=== PATIENT | female | born 1985 | race Caucasian/White ===

== ENCOUNTER 2019-05-15 15:21 | Inpatient (IN) | payer BC, MEDICAID, OTHER ==
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
[2019-05-15 17:04] LABS: Amphetamine Screen,Urine Not Detected (NotDetected); Barbiturate Screen,Urine Not Detected (NotDetected); Benzodiazepines Screen,Urine Not Detected (NotDetected); Cocaine Screen,Urine Not Detected (NotDetected); Methadone Screen, Urine Not Detected (NotDetected); Opiate Screen,Urine Not Detected (NotDetected); Oxycodone Screen, Urine Not Detected (NotDetected); Phencyclidine Screen,Urine Not Detected (NotDetected); Tricyclic Antidepressant,Urine Not Detected (NotDetected); Urn Cannabinoid Scrn Detected (NotDetected)
[2019-05-15] MEDS ORDERED: LORazepam 1 MG TAB PO STA (18:37)
[2019-05-15] MEDS ORDERED: MAG HYDROX/AL HYDROX/SIMETH 30 ML CUP PO PRN (19:11)
[2019-05-15] MEDS ORDERED: MAGNESIUM HYDROXIDE 2,400 MG/10 ML CUP PO PRN (19:11)
[2019-05-15] MEDS ORDERED: LORazepam 1 MG TAB PO PRN (19:11)
[2019-05-15] MEDS ORDERED: ZIPRASIDONE 20 MG VIAL IM PRN (19:11)
[2019-05-15] MEDS: NICOTINE 14MG/24HR PATCH TRANSDERM SCH (19:57)
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
[2019-05-15 22:29] LABS: Appearance,Urine Cloudy (Clear); Bacteria,Urine Rare /hpf; Bilirubin,Urine Negative (Negative); Blood,Urine Negative (Negative); Color,Urine Yellow; Glucose,Urine (UA) Negative (Negative); Ketones,Urine 1+ (Negative); Leukocyte Esterase,Urine Small (Negative); Mucus,Urine Few /hpf; Nitrite,Urine Negative (Negative); Protein,Urine Negative (Negative); RBC,Urine 1 /hpf (0-5); Specific Gravity,Urine 1.022 (1.001-1.035); Squamous Epithelial Cell,Urine 12 /hpf (0-4); Urobilinogen,Urine <2.0 mg/dL (<2.0); WBC,Urine 1 /hpf (0-5)
[2019-05-16 07:49] LABS: Basophils % (A) 1 %; Eosinophils # (A) 0.1 k/uL (0-0.7); Eosinophils % (A) 2 %; HCT 37.4 % (34.0-46.0); HGB 12.9 gm/dL (11.4-16.0); Lymphocytes % (A) 38 %; MCH 31.2 pg (25.0-35.0); MCHC 34.5 g/dL (31.0-37.0); MCV 90.6 fL (80.0-100.0); Mean Platelet Volume 6.6; Monocytes # (A) 0.4 k/uL (0-1.0); Monocytes % (A) 5 %; Neutrophils # (A) 4.2 k/uL (1.3-7.7); Neutrophils % (A) 53 %; Platelet Count 287 k/uL (150-450); RBC 4.13 m/uL (3.80-5.40); WBC 7.9 k/uL (3.8-10.6)
[2019-05-16 08:06] LABS: ALT 15 U/L (9-52); AST 18 U/L (14-36); African American GFR (CKD) >90 (>60 ml/min/1.73 sqM); Albumin 4.1 g/dL (3.5-5.0); Alkaline Phosphatase 46 U/L (38-126); Anion Gap 9 mmol/L; Bilirubin, Delta 0.1 mg/dL (0.0-0.2); Bilirubin,Unconjugated 0.6 mg/dL (0.0-1.1); Blood Urea Nitrogen 10 mg/dL (7-17); Calcium 9.1 mg/dL (8.4-10.2); Carbon Dioxide 25 mmol/L (22-30); Chloride 106 mmol/L (98-107); Cholesterol 162 mg/dL (<200); Glucose 84 mg/dL (74-99); HDL Cholesterol 54 mg/dL (40-60); LDL Cholesterol,Calculated 92 mg/dL (0-99); Potassium 4.1 mmol/L (3.5-5.1); Sodium 140 mmol/L (137-145); Total Bilirubin 0.7 mg/dL (0.2-1.3); Total Protein 6.9 g/dL (6.3-8.2); Triglycerides 81 mg/dL (<150)
[2019-05-16] MEDS: NICOTINE 14MG/24HR PATCH TRANSDERM SCH ×2 (09:22→21:24)
[2019-05-16] MEDS ORDERED: hydrOXYzine PAMOATE 25 MG CAP PO PRN (11:40)
[2019-05-16] MEDS ORDERED: cefTRIAXone 1,000 MG VIAL (IM USE) IM STA (11:43)
[2019-05-16] MEDS: ESCITALOPRAM 5 MG TAB PO SCH (12:06)
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
[2019-05-16 16:42] LABS: Hemoglobin A1C 4.5 % (4.0-6.0)
[2019-05-16] MEDS ORDERED: traZODone HCL 50 MG TAB PO SCH (21:00)
[2019-05-17] MEDS: ESCITALOPRAM 5 MG TAB PO SCH (08:39)
[2019-05-17] MEDS: NICOTINE 14MG/24HR PATCH TRANSDERM SCH (08:39)
[2019-05-17] MEDS ORDERED: hydrOXYzine PAMOATE 25 MG CAP PO PRN (10:23)
--- NOTE | 2019-05-17 11:35 | P.PN ---
Progress Note - Text Progress Note Date: 05/17/19 Interval History: Patient was seen lying in her bed this morning was agreeable to speak with lauren jorgensen in the office. Patient states that she is continuing to feel frustrated as she is on the inpatient unit and claims that she misses her son and also was supposed to be moving into a new apartment this weekend however is stuck on the unit. Patient continues to feel overwhelmed with her stressors at home from her mother and her brother and patient spoke about wanting to get out of their life. Patient states that her anxiety and mood have mildly improved on the medications and she was able to get fair sleep last night on the trazodone however asked for an increase to the full dose of 50 mg. Patient states that she has not gone to groups yet however was encouraged to attend to help her with coping skills and distress tolerance and interact with other patients on the unit. At this time patient denies any suicidal or homical ideations, intent or plan. Patient denies any auditory, visual hallucinations and denies any paranoia or delusions. Patient denies any side effects from the medications and has been compliant with meds. Mental Status Exam: General Appearance: Patient appears to be stated age is alert, directable and cooperative. Patient does appear to be an mild distress Behavior: Patient is seated without any agitated behavior. Speech: Patient's speech is fluent and nonpressured. Mood/Affect: Patient reports their mood is mildly improving, affect is congruent Suicidality/Homicidality: Patient denies having any suicidal or homicidal ideation intent or plan. Perceptions: Patient denies any auditory or visual hallucinations. Though content/process: There is no evidence of any delusional thought content and thought process is linear and goal-directed. Preoccupied with arguments with her brother and mother. Memory and concentration: AOX3, grossly intact for the purposes of this session. Judgment and insight: Poor, improving mildly Assessment Depressive disorder unspecified Cannabis use disorder Nicotine dependence Plan: -Patient continues to meet criteria for inpatient psychiatric admission for symptom stabilization and safety. Patient has signed an adult voluntary form along with medication consent which is in patient's chart. -Medications: Will increase Lexapro to 10 mg daily for mood and anxiety tomorrow. We'll also increase trazodone to 50 mg daily at bedtime for insomnia and mood. Decreased hydroxyzine to 25 mg twice a day when necessary for anxiety. Patient received 1 dose of Rocephin IM yesterday for UTI symptoms. We'll continue to monitor and do a repeat UA in the near future. -Geodon and Ativan PRN for agitation/aggression -NRT - nicotine patch -SW on board for discharge planning. []
[2019-05-17] MEDS: traZODone HCL 50 MG TAB PO SCH (20:24)
[2019-05-18] MEDS: NICOTINE 14MG/24HR PATCH TRANSDERM SCH (08:49)
[2019-05-18] MEDS: ESCITALOPRAM 10 MG TAB PO SCH (08:49)
--- NOTE | 2019-05-18 14:56 | P.PN ---
Progress Note - Text Progress Note Date: 05/18/19 Interval history: Patient is seen in cross coverage today. She reports that her mood is doing better. She relates that yesterday she has side effects with the Vistaril and she doesn't want to take that again. She did take the trazodone last night but she feels like she missed the window in terms of sleeping better so she will try it again tonight. Mental status exam: She is alert and cooperative with the interview. Her speech is fluent, not rapid or pressured. Her thought processes are organized. Her mood is improved. She denies any thoughts of harm to self others. No evidence of active psychosis. She does not present with any agitation. Plan: We'll discontinue Vistaril when necessary as patient reports she had unwanted side effects with it. We'll continue other current psychotropic medication regimen at this time. Continue to monitor her mood and monitor her sleep and her ongoing response to treatment.
[2019-05-18] MEDS: ACETAMINOPHEN TAB 325 MG TAB PO PRN (18:44)
[2019-05-18 18:47] LABS: Glucose,Whole Blood 125 mg/dL (75-99)
[2019-05-18] MEDS: traZODone HCL 50 MG TAB PO SCH (22:18)
[2019-05-19] MEDS: ESCITALOPRAM 10 MG TAB PO SCH (09:03)
[2019-05-19] MEDS: NICOTINE 14MG/24HR PATCH TRANSDERM SCH (09:03)
--- NOTE | 2019-05-19 14:15 | P.PN ---
Progress Note - Text Progress Note Date: 05/19/19 Interval history: Patient seen in [facility] again today. She says that she slept well but she has been up since 5 in the morning. Makes reference to a peer coming in her room several times during the night. She does not voice any adverse psychotropic medication side effects. Her mood is improved. She does state that she took some medicine for constipation which she did give her benefit. She does seem to be eating enough. Mental status exam: She is alert and cooperative with the interview. Her speech is fluent, not rapid or pressured. Thought processes organized. Her mood is improved. She does not voice any thoughts of harm to self or others. There is no evidence of psychosis or agitation. Plan: Patient will be maintained on current psychotropic medication regimen. Continue to monitor for any medication side effects and monitor her ongoing response to treatment.
[2019-05-19] MEDS: ACETAMINOPHEN TAB 325 MG TAB PO PRN (17:35)
[2019-05-19] MEDS: traZODone HCL 50 MG TAB PO SCH (22:01)
[2019-05-20] MEDS: NICOTINE 14MG/24HR PATCH TRANSDERM SCH (08:34)
[2019-05-20] MEDS: ESCITALOPRAM 10 MG TAB PO SCH (08:34)
--- NOTE | 2019-05-20 11:47 | P.PN ---
Progress Note - Text Progress Note Date: 05/20/19 Interval History: Patient was seen in the hallways and was agreeable to speak with speech writer in the office. Patient states that she is feeling much better and had a better weekend. She states that her mood is gradually improving and her anxiety as well. Patient asked several questions about using marijuana when she left the inpatient unit and went home however speech writer spoke about the potential consequences/risks of using marijuana and the interactions and may have with her medications and affect on her mental health, patient verbally understood and agreed. Patient continues to feel that she should not be in the hospital however is directable and cooperative with treatment and states that she misses her son and wants to get home to him soon. Patient stated that she had a good sleep last night on the trazodone. Patient does claim that she did start her period cycle and was feeling a little bit irritable with some abdominal pain. Patient states that she is going to groups and is encouraged to attend to help her with coping skills and distress tolerance and interact with other patients on the unit. At this time patient denies any suicidal or homical ideations, intent or plan. Patient denies any auditory, visual hallucinations and denies any paranoia or delusions. Patient denies any side effects from the medications and has been compliant with meds. Mental Status Exam: General Appearance: Patient appears to be stated age is alert, directable and cooperative. Behavior: Patient is seated without any agitated behavior. Speech: Patient's speech is fluent and nonpressured. Mood/Affect: Patient reports their mood is mildly improving, affect is congruent Suicidality/Homicidality: Patient denies having any suicidal or homicidal ideation intent or plan. Perceptions: Patient denies any auditory or visual hallucinations. Though content/process: There is no evidence of any delusional thought content and thought process is linear and goal-directed. Memory and concentration: AOX3, grossly intact for the purposes of this session. Judgment and insight: Fair, improving mildly Assessment Depressive disorder unspecified Cannabis use disorder Nicotine dependence Plan: -Patient continues to meet criteria for inpatient psychiatric admission for symptom stabilization and safety. Patient has signed an adult voluntary form along with medication consent which is in patient's chart. -Medications: Will increase Lexapro to 15 mg daily for mood and anxiety tomorrow. We'll continue with trazodone to 50 mg daily at bedtime for insomnia and mood. -Patient received 1 dose of Rocephin IM yesterday for UTI symptoms. Will repeat UA today. -Geodon and Ativan PRN for agitation/aggression -NRT - nicotine patch -SW on board for discharge planning. We'll patient likely to be discharged home in 1-2 days.
[2019-05-20] MEDS: IBUPROFEN 600 MG TAB PO PRN (13:10)
[2019-05-20 21:08] LABS: Appearance,Urine Cloudy (Clear); Bacteria,Urine Few /hpf; Bilirubin,Urine Negative (Negative); Blood,Urine Large (Negative); Budding Yeast,Urine Rare /hpf; Color,Urine Yellow; Glucose,Urine (UA) Negative (Negative); Ketones,Urine Negative (Negative); Leukocyte Esterase,Urine Small (Negative); Mucus,Urine Rare /hpf; Nitrite,Urine Negative (Negative); PH, Urine 5.5 (5.0-8.0); Protein,Urine Negative (Negative); RBC,Urine 3 /hpf (0-5); Specific Gravity,Urine 1.017 (1.001-1.035); Squamous Epithelial Cell,Urine 15 /hpf (0-4); Urobilinogen,Urine <2.0 mg/dL (<2.0)
[2019-05-20] MEDS: traZODone HCL 50 MG TAB PO SCH (23:11)
[2019-05-21] MEDS ORDERED: LORazepam 1 MG TAB PO STA (01:20)
[2019-05-21] MEDS: ESCITALOPRAM 5 MG TAB PO SCH (08:54)
[2019-05-21] MEDS: NICOTINE 14MG/24HR PATCH TRANSDERM SCH (08:59)
--- NOTE | 2019-05-21 11:30 | P.PN ---
Progress Note - Text Progress Note Date: 05/21/19 Interval History: Patient was seen in the hallways and was agreeable to speak with fiction writer in the office. Patient states that she is feeling much better and claims that "I finally feel happy again" and states that she is remaining positive and trying to work on her issues when she gets discharged. She spoke about needing to go to the court house to figure out her custody agreement and to see if they would be able to reverse her temporary custody suspension on her kids. She also claims that she is looking forward to being discharged tomorrow and states that she will be going to stay at one of her friend's house until Monday when her apartment will be ready for her to move into. Patient stated that she had ok sleep last night on the trazodone however is claiming that she did not fall asleep until 12:00 last night and is requesting an increase in the dose to 75 mg. Patient states that she is going to groups and is encouraged to attend to help her with coping skills and distress tolerance and interact with other patients on the unit. At this time patient denies any suicidal or homical ideations, intent or plan. Patient denies any auditory, visual hallucinations and denies any paranoia or delusions. Patient denies any side effects from the medications and has been compliant with meds. Mental Status Exam: General Appearance: Patient appears to be stated age is alert, directable and cooperative. Behavior: Patient is seated without any agitated behavior. Speech: Patient's speech is fluent and nonpressured. Mood/Affect: Patient reports their mood is improving, affect is congruent Suicidality/Homicidality: Patient denies having any suicidal or homicidal ideation intent or plan. Perceptions: Patient denies any auditory or visual hallucinations. Though content/process: There is no evidence of any delusional thought content and thought process is linear and goal-directed. Memory and concentration: AOX3, grossly intact for the purposes of this session. Judgment and insight: Fair, improving mildly Assessment Depressive disorder unspecified Cannabis use disorder Nicotine dependence Plan: -Patient continues to meet criteria for inpatient psychiatric admission for symptom stabilization and safety. Patient has signed an adult voluntary form along with medication consent which is in patient's chart. -Medications: Will continue with Lexapro to 15 mg daily for mood and anxiety. We'll increase trazodone to 75mg daily at bedtime for insomnia and mood. -Repeated UA showed that patient has blood in the urine along with a small amount of leukocyte esterase. When asked about patient's urinary symptoms patient claims that she has always had increase in frequency of her urine since she has had the IUD placed and also claims that the blood may have been from her menstrual cycle. Patient is denying any dysuria or urgency or any pus in her urine. -Geodon and Ativan PRN for agitation/aggression -NRT - nicotine patch -SW on board for discharge planning. We'll patient likely to be discharged tomorrow to friend's house. Patient will be required to have a family meeting with her friend that she is being discharged to her house prior to her leaving the hospital.
[2019-05-21] MEDS: IBUPROFEN 600 MG TAB PO PRN (12:22)
[2019-05-21] MEDS: traZODone HCL 50 MG TAB PO SCH ×2 (21:43→22:04)
[2019-05-21] MEDS ORDERED: traZODone HCL 50 MG TAB PO SCH (22:00)
[2019-05-22 06:54] VITALS: BP 119/54; PULSE 62; RESP 16; TEMP 97.9
[2019-05-22] MEDS: ESCITALOPRAM 5 MG TAB PO SCH (08:23)
[2019-05-22] MEDS: NICOTINE 14MG/24HR PATCH TRANSDERM SCH (08:23)
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
[2019-05-22] MEDS ORDERED: traZODone HCL 50 MG TAB PO SCH (21:00)
== END 2019-05-22 13:00 | disposition home or self-care (01) | DRG 885 ==
LOC: SUPCPDRO 15:21 → EC 15:21 → 3MHU 18:38
PROVIDERS: ADMIT Psychiatry & Neurology Psychiatry; ATTEND Psychiatry & Neurology Psychiatry
DX: F33.1 Major depressive disorder, recurrent, moderate (principal); F23 Brief psychotic disorder; R45.851 Suicidal ideations; E78.5 Hyperlipidemia, unspecified; F12.10 Cannabis abuse, uncomplicated; F17.210 Nicotine dependence, cigarettes, uncomplicated; F41.0 Panic disorder [episodic paroxysmal anxiety]; G47.00 Insomnia, unspecified; K59.00 Constipation, unspecified; R35.0 Frequency of micturition; Z88.0 Allergy status to penicillin; Z88.8 Allergy status to other drugs, medicaments and biological substances
CPT/HCPCS: 80053; 80061; 80306; 81001; 81025; 82075; 82248; 83036; 84443; 85025; 87086; 99285

== ENCOUNTER 2020-08-22 19:30 | Inpatient (IN) | payer MEDICAID, OTHER ==
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
[2020-08-22] MEDS ORDERED: HALOPERIDOL LACTATE 5 MG/ML 1 ML VIAL IM STA (21:47)
[2020-08-22] MEDS ORDERED: ACETAMINOPHEN TAB 325 MG TAB PO PRN (23:13)
[2020-08-22] MEDS ORDERED: LORazepam 1 MG TAB PO PRN (23:13)
[2020-08-22] MEDS ORDERED: HALOPERIDOL LACTATE 5 MG/ML 1 ML VIAL IM PRN (23:16)
[2020-08-22] MEDS ORDERED: LORazepam 2 MG/ML INJ IM PRN (23:17)
[2020-08-23] MEDS ORDERED: MAG HYDROX/AL HYDROX/SIMETH 30 ML CUP PO PRN
[2020-08-23] MEDS ORDERED: MAGNESIUM HYDROXIDE 2,400 MG/10 ML CUP PO PRN
[2020-08-23 07:51] LABS: Basophils % (A) 0 %; Eosinophils # (A) 0.1 k/uL (0-0.7); Eosinophils % (A) 2 %; HCT 35.7 % (34.0-46.0); HGB 12.3 gm/dL (11.4-16.0); Lymphocytes # (A) 2.2 k/uL (1.0-4.8); Lymphocytes % (A) 32 %; MCH 30.6 pg (25.0-35.0); MCHC 34.4 g/dL (31.0-37.0); MCV 89.1 fL (80.0-100.0); Mean Platelet Volume 6.6; Monocytes # (A) 0.3 k/uL (0-1.0); Monocytes % (A) 5 %; Neutrophils # (A) 4.2 k/uL (1.3-7.7); Neutrophils % (A) 60 %; Platelet Count 296 k/uL (150-450); RBC 4.01 m/uL (3.80-5.40); RDW 12.1 % (11.5-15.5); WBC 6.9 k/uL (3.8-10.6)
[2020-08-23 08:05] LABS: ALT 11 U/L (4-34); AST 26 U/L (14-36); African American GFR (CKD) >90 (>60 ml/min/1.73 sqM); Albumin 3.7 g/dL (3.5-5.0); Alkaline Phosphatase 48 U/L (38-126); Anion Gap 5 mmol/L; Blood Urea Nitrogen 10 mg/dL (7-17); Calcium 9.1 mg/dL (8.4-10.2); Carbon Dioxide 25 mmol/L (22-30); Chloride 108 mmol/L (98-107); Cholesterol 141 mg/dL (<200); Glucose 86 mg/dL (74-99); HDL Cholesterol 49 mg/dL (40-60); LDL Cholesterol,Calculated 82 mg/dL (0-99); Non-African American GFR(CKD) >90 (>60 ml/min/1.73 sqM); Potassium 4.1 mmol/L (3.5-5.1); Sodium 138 mmol/L (137-145); Total Bilirubin 0.6 mg/dL (0.2-1.3); Total Protein 6.4 g/dL (6.3-8.2); Triglycerides 49 mg/dL (<150)
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
--- NOTE | 2020-08-24 01:31 | P.MDCNMH ---
History of Present Illness H&P Date: 08/23/20 Chief Complaint: medical evaluation 35 year old female no significant past medical history patient was found in the [place] by police with delusional thoughts, she claims th at she has a stalker, and admits to using marijuanan and meth, denies alcohol use, she admits to smoking, she denies any suicidal ideation she denies any medical concerns at this time denies upper respiratory infection symptoms do not denies GI symptoms denies any urinary changes denies any bleedin g. Review of Systems Pertinent positives as noted in HPI. All other systems were reviewed and are negative Past Medical History Past Medical History: Hyperlipidemia Additional Past Medical History / Comment(s): hernia History of Any Multi-Drug Resistant Organisms: None Reported Past Surgical History: No Surgical Hx Reported Past Psychological History: Anxiety, Depression, Panic Disorder Smoking Status: Current every day smoker Past Alcohol Use History: None Reported Past Drug Use History: Marijuana Medications and Allergies Home Medications Medication Instructions Recorded Confirmed Type Acetaminophen Tab [Tylenol] 650 mg PO Q6HR PRN #25 tab 05/22/19 Rx Escitalopram [Lexapro] 15 mg PO DAILY #28 tab 05/22/19 Rx Nicotine 14Mg/24Hr Patch [Habitrol] 1 patch TRANSDERM DAILY #7 patch 05/22/19 Rx traZODone HCL [Desyrel] 50 mg PO HS #14 tab 05/22/19 Rx Allergies Allergy/AdvReac Type Severity Reaction Status Date / Time amoxicillin Allergy Rash/Hives Verified 08/22/20 19:37 prednisone AdvReac Hallucinati Verified 08/22/20 19:37 ons Physical Exam Vitals: Vital Signs Temp 08/23/20 18:28 99.0 F 08/23/20 13:09 97.4 F L Intake and Output 08/23/20 08/23/20 08/24/20 14:59 22:59 06:59 Other: Weight 52.1 kg Constitutional: No acute distress, conversant, cooperative Eyes: Anicteric sclerae, moist conjunctiva, Pupils equal round reactive to light ENMT: NC/AT Oropharynx clear, no erythema, no exudates Neck: Supple, FROM, no masses, or JVD No carotid bruits No thyromegaly Lungs: Clear to auscultation Clear to percussion Normal respiratory effort, no accessory muscle use Cardiovascular: Heart regular in rate and rhythm, No murmurs, gallops, or rubs No peripheral edema Abdominal: Soft Nontender, no guarding, rebound or rigidity Abdomen moving with respiration Normoactive bowel sounds No hepatomegaly, No splenomegaly No palpable mass No abdominal wall hernia noted Skin: Normal temperature, tone, texture, turgor No induration No subcutaneous nodules No rash, lesions No ulcers Extremities: No digital cyanosis No clubbing Pedal pulses intact and symmetrical Radial pulses intact and symmetrical No calf tenderness Psychiatric: Alert and oriented to person, place Flat affect Poor judgement Neuro Muscles Strength 5/5 in all 4 extremities Sensation to light touch grossly present throughout Cranial nerves II-XII grossly intact No focal sensory deficits Lymphatics: no palpable cervical or supraclavicular , or inguinal lymph nodes Cranial Nerve Examination - Cranial Nerves Cranial Nerve II- Optic: Intact Cranial Nerve III- Oculomotor: Intact Cranial Nerve IV- Trochlear: Intact Cranial Nerve V- Trigeminal: Intact Cranial Nerve - Abducens: Intact Cranial Nerve VII- Facial: Intact Cranial Nerve VIII- Auditory: Intact Cranial Nerve IX- Glossopharyngeal: Intact Cranial Nerve X- Vagus: Intact Cranial Nerve XI- Accessory: Intact Cranial Nerve XII- Hypoglossal: Intact Results CBC & Chem 7: 08/23/20 07:30 08/23/20 07:30 Labs: Abnormal Lab Results - Last 24 Hours (Table) 08/23/20 Range/Units 07:30 Chloride 108 H (98-107) mmol/L Assessment and Plan Assessment: Delusional ideation Management per psych Polysubstance abuse Counseled to quit drug of abuse Labs reviewed unremarkable Thank you for allowing us to participate in the care of this patient. We will follow peripherally. Do not hesitate to contact us with questions. Someone can be reached from the [facility] hospitalist group at all hours of the day at [phone].
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
[2020-08-25] MEDS ORDERED: OLANZapine 10 MG VIAL IM PRN (10:50)
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
[2020-08-25] MEDS: OLANZapine 5 MG TAB PO SCH (14:16)
[2020-08-26] MEDS: OLANZapine 5 MG TAB PO SCH (08:51)
--- NOTE | 2020-08-26 11:20 | P.PN ---
Progress Note - Text Progress Note Date: 08/26/20 Clinical Problems: Unspecified psychotic disorder, rule out methamphetamine induced psychotic disorder, rule out bipolar disorder manic with psychotic features, rule out schizoaffective disorder, cannabis use disorder, methamphetamine use disorder, tobacco use Interim history: I reviewed the medical record, interviewed the patient and discussed her treatment and treatment plan during team meeting. She again refused to get out of bed and would not take the covers of her head. She denied problems or concerns. She took the initial dose of olanzapine and denied side effects. She does not participate in therapeutic groups or activities. She is posed no management problem and had no episodes of behavioral dyscontrol. Mental status exam: She presented as a thin, irritable and uncooperative 35-year-old female. She did not make eye contact but appeared to attend to the interview. Her speech was abrupt and her answers to questions were terse. Her affect was angry. She did not express suicidal ideation or wishes. She was paranoid and expressed paranoid delusional thoughts. Her thinking was concrete and not fully organized and goal directed. She did not appear to be responding to internal stimuli. Assessment: She remains irritable, paranoid and uncooperative. Plan: Continue inpatient treatment. Safety precautions. Continue olanzapine 5 mg by mouth and titrated according to clinical response and tolerance. If she refuses the oral dose then proceed with involuntary hospitalization. Continue Haldol and or Ativan when necessary for agitation or aggression. Encourage participation in therapeutic groups and activities. Evaluate clinical status re sponse to treatment on a daily basis.
[2020-08-27] MEDS: OLANZapine 5 MG TAB PO SCH (08:14)
--- NOTE | 2020-08-27 11:19 | P.PN ---
Progress Note - Text Progress Note Date: 08/27/20 Clinical Problems: Unspecified psychotic disorder, rule out methamphetamine induced psychotic disorder, rule out bipolar disorder manic with psychotic features, rule out schizoaffective disorder, cannabis use disorder, methamphetamine use disorder, tobacco use Interim history: I reviewed the medical record, interviewed the patient and discussed her treatment and treatment plan during team meeting. She again refused to get out of bed she took the covers of her head and made eye contact. Her only concern was to complained that her room was called. I suggested that she asked nursing staff for extra blankets or even a change in her room. She did not talk about the paranoid delusional thoughts she expressed when she was admitted to the hospital She's been compliant with the current dose of olanzapine and denied side effects. She does not participate in therapeutic groups or activities. She is posed no management problem and had no episodes of behavioral dyscontrol. Mental status exam: She presented as a thin, irritable and uncooperative 35-year-old female. She did not make eye contact but appeared to attend to the interview. Her speech was abrupt and her answers to questions were terse. Her affect was angry. She did not express suicidal ideation or wishes. She was paranoid and expressed paranoid delusional thoughts. Her thinking was concrete and not fully organized and goal directed. She did not appear to be responding to internal stimuli. Assessment: She is less irritable and paranoid but remains withdrawn and uncooperative. Plan: Continue inpatient treatment. Safety precautions. Increase olanzapine to 10 mg at bedtime and titrated according to clinical response and tolerance. If she refuses the oral dose then proceed with involuntary hospitalization. Continue Haldol and or Ativan when necessary for agitation or aggression. Encou rage participation in therapeutic groups and activities. Evaluate clinical status response to treatment on a daily basis.
[2020-08-28] MEDS ORDERED: OLANZapine 5 MG TAB PO SCH (09:00)
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
[2020-08-29] MEDS: OLANZapine 7.5 MG TAB PO SCH (08:32)
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
[2020-08-30] MEDS: OLANZapine 7.5 MG TAB PO SCH (08:34)
[2020-08-30 09:12] VITALS: BMI 22.4
--- NOTE | 2020-08-30 15:35 | PN ---
PROGRESS NOTE DATE OF SERVICE: 08/30/2020. CHIEF COMPLAINT: The patient was brought to the ED by police. She said she had called police believing there were people watching her and threatening her. INTERVAL HISTORY: Patient has been doing fair. She had a quiet day yesterday. Mostly she is in her room. She did not attend groups. She will come out and wander a bit in the [place], so she does not interact much with others. She said that she slept well last night. In fact, slept in until late morning. She had no specific complaint or concern today when I talked to her. She reported no problems with her medication. She did not engage much in conversation. She was reluctant to go to groups though did not really clarify what the issues were. She did not identify any specific problems or concerns. She tolerates her psychotropic medications. MENTAL STATUS: Patient gave fair eye contact at best. Psychomotor activity was slowed. Speech was monotone. She answered questions with brief responses. She did not say much. Her affect was flat. Her mood reserved. She seemed somewhat distressed. It was difficult to assess for thought disorder. It was difficult to assess for thoughts of harm. ASSESSMENT: I will continue the current diagnosis and treatment plan. I will continue psychotropic medications the same. I encouraged the patient to connect with nursing if there were any problems or concerns. We will focus on stabilization and discharge planning. NILESH / ALVIN: [id number] /
[2020-08-31 07:08] VITALS: BP 96/58; PULSE 50; RESP 14
[2020-08-31] MEDS: OLANZapine 7.5 MG TAB PO SCH (08:21)
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
[2020-08-31 13:54] VITALS: TEMP 97.9
== END 2020-08-31 14:41 | disposition home or self-care (01) | DRG 897 ==
LOC: EC 19:30 → 3MHU 23:07
PROVIDERS: ADMIT Psychiatry & Neurology Psychiatry; ATTEND Psychiatry & Neurology Psychiatry
DX: F15.259 Other stimulant dependence with stimulant-induced psychotic disorder, unspecified (principal); E78.5 Hyperlipidemia, unspecified; F15.23 Other stimulant dependence with withdrawal; F60.9 Personality disorder, unspecified; F12.10 Cannabis abuse, uncomplicated; F32.9 Major depressive disorder, single episode, unspecified; F41.0 Panic disorder [episodic paroxysmal anxiety]; Z20.828 Contact with and (suspected) exposure to other viral communicable diseases; F17.200 Nicotine dependence, unspecified, uncomplicated; Z71.6 Tobacco abuse counseling; Z79.899 Other long term (current) drug therapy; Z88.0 Allergy status to penicillin; Z88.8 Allergy status to other drugs, medicaments and biological substances
CPT/HCPCS: 80053; 80061; 82075; 83036; 84443; 85025; 87635; 96372; 99285

== ENCOUNTER 2021-07-31 16:38 | Emergency (ER) | payer OTHER ==
[2021-07-31 17:13] VITALS: BP 129/91; PULSE 91; RESP 20; TEMP 98.4
[2021-07-31] MEDS ORDERED: MORPHINE SULFATE 4 MG/ML SYRINGE IM STA (18:22)
[2021-07-31] MEDS ORDERED: CLINDAMYCIN 150 MG CAP PO STA (18:29)
[2021-07-31] MEDS ORDERED: traMADol 50 MG STARTER PACK 3 TAB BTL PO STA (18:30)
--- NOTE | 2021-07-31 18:31 | ED ---
General Adult HPI - General Chief complaint: Dental/Oral Stated complaint: tooth pain Time Seen by Provider: 07/31/21 18:12 Source: patient, family, RN notes reviewed, old records reviewed Mode of arrival: ambulatory Limitations: no limitations - History of Present Illness Initial comments: 36-year-old female, alert and oriented 4, tearful and crying in pain states that she's had a fractured tooth for a couple of months and does have an appointment with the dentist on Monday. She states that she cannot tolerate the pain. Denies any fevers or other complaints. -: month(s) (2) Location: mouth (Dental pain tooth #18) Severity scale (1-10): 10 Quality: constant Consistency: constant Improves with: none Worsens with: none Associated Symptoms: denies other symptoms Treatments Prior to Arrival: NSAID - Related Data Previous Rx's Medication Instructions Recorded Acetaminophen Tab [Tylenol] 650 mg PO Q6HR PRN #25 tab 05/22/19 Nicotine 14Mg/24Hr Patch [Habitrol] 1 patch TRANSDERM DAILY #7 patch 05/22/19 OLANZapine [ZyPREXA] 15 mg PO DAILY #30 tablet 08/31/20 Clindamycin HCl 300 mg PO Q8H 7 Days #21 cap 07/31/21 Clindamycin [Cleocin] 150 mg PO Q8H 7 Days #21 capsule 07/31/21 Ibuprofen [Motrin] 600 mg PO Q8HR PRN #30 tab 07/31/21 Allergies Allergy/AdvReac Type Severity Reaction Status Date / Time amoxicillin Allergy Rash/Hives Verified 07/31/21 17:13 prednisone AdvReac Hallucinati Verified 07/31/21 17:13 ons Review of Systems ROS Statement: Those systems with pertinent positive or pertinent negative responses have been documented in the HPI. ROS Other: All systems not noted in ROS Statement are negative. Past Medical History Past Medical History: Hyperlipidemia Additional Past Medical History / Comment(s): hernia History of Any Multi-Drug Resistant Organisms: None Reported Past Surgical History: No Surgical Hx Reported Past Psychological History: Anxiety, Depression, Panic Disorder Smoking Status: Current every day smoker Past Alcohol Use History: None Reported Past Drug Use History: Marijuana General Exam Limitations: no limitations General appearance: alert, in distress (pain) Eye exam: Present: normal appearance, EOMI ENT exam: Present: normal oropharynx, mucous membranes moist, other (fractured tooth #18, no abscess noted, dental caries ) Neck exam: Present: normal inspection, full ROM. Absent: tenderness, meningismus, lymphadenopathy Respiratory exam: Present: normal lung sounds bilaterally. Absent: respiratory distress, wheezes, rales, rhonchi, stridor Cardiovascular Exam: Present: regular rate, normal rhythm GI/Abdominal exam: Present: soft Neurological exam: Present: alert, oriented X3 Psychiatric exam: Present: other (tearful) Skin exam: Present: warm, dry, intact, normal color. Absent: rash Course Vital Signs 07/31/21 17:11 Temperature 98.4 F Pulse Rate 91 Respiratory 20 Rate Blood Pressure 129/91 O2 Sat by Pulse 96 Oximetry Medical Decision Making - Medical Decision Making Patient presents to the emergency room complaining of dental pain for 2 months. States that it is significantly worse today. She is tearful and crying. She does have an appointment on Monday with her dentist. She denies any fevers. There is no evidence of abscess or swelling. There is no lymphadenopathy. Patient has multiple dental caries. She states that Motrin has not been helping her. She was given an injection of morphine for pain and antibiotic prescription. Case discussed with Dr. Novoa Disposition Clinical Impression: Dental abscess Disposition: HOME SELF-CARE Condition: Good Instructions (If sedation given, give patient instructions): Dental Abscess (ED), Toothache (ED) Additional Instructions: Take antibiotics and Motrin every 8 hours as prescribed and follow up with your dentist Monday as scheduled. Prescriptions: Clindamycin [Cleocin] 150 mg PO Q8H 7 Days #21 capsule Clindamycin HCl 300 mg PO Q8H 7 Days #21 cap Ibuprofen [Motrin] 600 mg PO Q8HR PRN #30 tab PRN Reason: Pain Is patient prescribed a controlled substance at d/c from ED?: No Referrals: None,Stated [Primary Care Provider] - 1-2 days Time of Disposition: 18:31
== END 2021-07-31 19:04 | disposition home or self-care (01) ==
LOC: EC 16:38
DX: K04.7 Periapical abscess without sinus (principal); E78.5 Hyperlipidemia, unspecified; F41.9 Anxiety disorder, unspecified; F32.A Depression, unspecified; F17.200 Nicotine dependence, unspecified, uncomplicated; F12.90 Cannabis use, unspecified, uncomplicated
CPT/HCPCS: 99282; 96372; J2270

== ENCOUNTER → 2024-07-02 | Outpatient (CLI) | payer OTHER ==
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
== END | disposition home or self-care (01) ==
LOC: RADUSWWP 08:30
PROVIDERS: ATTEND Family Medicine
CPT/HCPCS: 76700

== ENCOUNTER → 2024-08-20 | Outpatient (CLI) | payer OTHER ==
--- NOTE | 2024-08-20 23:04 | MR ---
EXAMINATION TYPE: MR abdomen wo/w con DATE OF EXAM: 08/20/2024 7:33 PM COMPARISON: Most recent abdominal ultrasound July 02, 2024 and older ultrasound 2014. CLINICAL INDICATION: Female, 39 years old with history of R93.2 ABNORMAL FINDINGS ON DX IMAGING OF LI ABEL AND, abnormal ultrasound, pain right side of back. IV Contrast: 7 cc Gadobutrol (None if empty) CONTRAST: Standard multiplanar, multisequence MRI departmental protocol images were obtained without contrast a nd with 7 mL intravenous Gadobutrol gadolinium contrast. FINDINGS: Liver: Liver is normal in size. There for lesions of T1 hypointensity and T2 hyperintensity scattered throughout the liver with largest in the posterior right hepatic dome measuring 2.2 x 1.6 cm axial i mage 55. Dynamic postcontrast images show peripheral nodular enhancement with progressive central fidencio ling in the larger lesions consistent with benign hemangiomas. Smaller inferior right hepatic lobe le kaiden demonstrate definitive enhancement axial image 70 could reflect simple subcentimeter thin-walled cyst. No biliary dilatation. Contracted gallbladder. Other: Lung bases are clear. The spleen, pancreas, and both adrenal glands appear within normal limit s. A few punctate T2 hyperintense lesions upper pole left kidney are too small to further characteriz e but presumably benign. No abnormal bowel dilatation. Small fat-containing umbilical hernia. Osseous structures are intact. IMPRESSION: At least 4 hepatic lesions are present, largest represent benign hemangiomas. [facility], , 08/20/2024 11:01 PM
== END | disposition home or self-care (01) ==
LOC: RADMRIMAIN 17:59
PROVIDERS: ATTEND Family Medicine
DX: D18.03 Hemangioma of intra-abdominal structures (principal); R93.2 Abnormal findings on diagnostic imaging of liver and biliary tract
CPT/HCPCS: 74183; A9585

== ENCOUNTER → 2024-09-25 | Outpatient (CLI) | payer OTHER ==
--- NOTE | 2024-09-25 09:20 | XR ---
EXAMINATION TYPE: XR thoracic spine 2V DATE OF EXAM: 09/25/2024 9:14 AM COMPARISON: None. CLINICAL INDICATION: Female, 39 years old with history of M54.9 MID BACK PAIN, pain TECHNIQUE: 3 view(s) obtained. FINDINGS: There are 12 thoracic type vertebral bodies. Pedicles are intact. Disc heights are preserved. Vertebr al body heights are preserved. Alignment is normal IMPRESSION: 1. . Unremarkable three-view thoracic spine [facility], , 09/25/2024 9:18 AM
== END | disposition home or self-care (01) ==
LOC: RADXRMAIN 08:51
PROVIDERS: ATTEND Family Medicine
DX: M54.6 Pain in thoracic spine (principal)
CPT/HCPCS: 72070